=== PATIENT | male | born 1995 | race Caucasian/White ===

== ENCOUNTER → 2019-05-17 09:43 | Outpatient (BNVA) | payer MEDICAID, SELFPAY | PROVIDERS: Family Provider Nurse Practitioner; PCP Nurse Practitioner; Visit Provider Nurse Practitioner Psychiatric/Mental Health | DX: F33.1 Major depressive disorder, recurrent, moderate (principal); F43.12 Post-traumatic stress disorder, chronic; F41.1 Generalized anxiety disorder | CPT/HCPCS: 99213 ==

== ENCOUNTER 2019-06-09 18:12 | Inpatient (IN) | payer MEDICAID, SELFPAY ==
[2019-06-09 18:19] VITALS: BP 174/119; PULSE 86; RESP 16; TEMP 36.8; O2SAT 99; BMI 36.5
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
[2019-06-09 18:46] VITALS: O2SAT 97
[2019-06-09] MEDS: nicotine 21 mg Patch 1 PATCH TRANSDERMA (18:52)
[2019-06-09 19:14] LABS: Basophils % 0.3 %; Eosinophils # 0.1 10^3/uL (0.0-0.8); Eosinophils % 1.2 %; Hematocrit 42.8 % (42.0-52.0); Hemoglobin 14.1 g/dL (11.7-16.6); Lymphocytes # 2.3 10^3/uL (0.8-4.8); Mean Corpuscular HGB Conc 32.9 g/dL (30.0-36.0); Mean Corpuscular Hemoglobin 28.3 pg (28.0-34.0); Mean Corpuscular Volume 85.9 fL (80-94); Mean Platelet Volume 9.5 fL (7.4-10.4); Monocytes # 0.6 10^3/uL (0.2-0.9); Monocytes % 6.2 %; Neutrophils # 6.8 10^3/uL (1.8-7.7); Neutrophils % 68.9 %; Nucleated Red Blood Cells % 0 %; Platelet Count 297 10^3/cmm (130-400); Red Blood Count 4.98 10^6/uL (4.1-5.3); Red Cell Distribution Width 13.1 % (12.1-15.1); White Blood Count 9.9 10^3/uL (4.0-10.0)
[2019-06-09 19:41] LABS: Alanine Aminotransferase 9 U/L (0-41); Albumin Level 4.4 g/dL (3.5-5.2); Alkaline Phosphatase 134 IU/L (40-130); Aspartate Amino Transferase 18 U/L (0-40); Blood Urea Nitrogen 7 mg/dL (6-20); Calcium 10.1 mg/dL (8.5-10.5); Carbon Dioxide 24 mmol/L (22-29); Chloride 102 mmol/L (98-107); Globulin 3.2 g/dL (1.3-4.6); Glomerular Filtration Rate 83.7 mL/min (90-130); Glucose 123 mg/dL (65-115); Osmolality Calculated 283 mOsm/kg (285-295); Salicylate 0.5 mg/dL (3-10); Sodium 138 mmol/L (136-145); Thyroid Stimulating Hormone 1.91 uIU/mL (0.27-4.20); Total Bilirubin 0.5 mg/dL (0.15-1.2); Total Protein 7.6 g/dL (6.6-8.7)
[2019-06-09] MEDS: LORazepam 2 mg Tablet PO (19:44)
[2019-06-09 19:45] LABS: Acetaminophen < 5.0 ug/mL (10-30); Alcohol Level < 10 mg/dL (0-10)
[2019-06-09] MEDS: gabapentin 300 mg Capsule PO (21:34)
[2019-06-09] MEDS: CELEcoxib 100 mg Capsule PO (21:35)
[2019-06-09 22:13] VITALS: BP 142/93; PULSE 82; RESP 18; TEMP 36.9; O2SAT 98
[2019-06-09] MEDS: hyDROXYzine 25 mg Capsule 50 MG PO (22:49)
--- NOTE | 2019-06-09 22:50 | PC.NURSE ---
visteril given per pt request.
[2019-06-10 00:21] LABS: Amphetamines Screen Urine Negative (Negative); Barbiturates Screen Urine Negative (Negative); Benzodiazepines Screen Urine Positive (Negative); Cocaine Screen Urine Negative (Negative); Opiate Screen Urine Positive (Negative); PCP Screen Urine Negative (Negative); THC Screen Urine Positive (Negative)
[2019-06-10] MEDS: OLANZapine ODT 5 MG TABLET PO ×2 (00:26→21:08)
--- NOTE | 2019-06-10 00:27 | PC.NURSE ---
Pt given zyprexa at this time per request for a sleep aide.
[2019-06-10 06:00] VITALS: BP 134/79; PULSE 83; RESP 16; TEMP 36.5; O2SAT 96
[2019-06-10] MEDS: nicotine 21 mg Patch 1 PATCH TRANSDERMA (13:08)
[2019-06-10] MEDS: hyDROXYzine 25 mg Capsule 50 MG PO ×2 (13:08→20:20)
--- NOTE | 2019-06-10 13:08 | PC.NURSE ---
PRN VISTARIL VISTARIL 50MG PO PER PT C/O ANXIETY. WILL CONTINUE TO MONITOR FOR MEDICATION EFFECTIVENESS.
[2019-06-10 14:00] VITALS: BP 132/80; PULSE 115; RESP 20; TEMP 36.2; O2SAT 96
--- NOTE | 2019-06-10 14:00 | PC.NURSE ---
PRN VISTARIL FOLLOW UP MEDICATION EFFECTIVE. NO FURTHER C/O ANXIETY.
--- NOTE | 2019-06-10 17:16 | PM.NHP ---
Providers/Chief Complaint Admitting Physician: Erasto Aiken MD Primary Care Provider: CATIA Salcedo Chief Complaint: mhe HPI NPU History of Present Illness Luis Cortes is a 23-year-old male who came in POV with suicidal ideation. His fianc?e brought him. He was cooperative during ED stay. Fianc? gave history in front of the patient in the room to me since the patient had a flat affect stared down the whole time and did not want to answer many questions. He did not deny that what she said was false. She stated as does her affidavit that he had a shotgun with which he was going to kill himself but she was able to get that away from him just prior to coming in today. Review of Systems Narrative: General: Reports: 10 or more systems reviewed and unremarkable except in HPI and below Const: Denies: fever or chills Eyes: Denies: change in vision ENMT: Denies: throat pain Card: Denies: chest pain Resp: Denies: shortness of breath GI: Denies: abdominal pain, nausea, vomiting or change in bowel habits Musc: Denies: muscle weakness Skin/Breast: Denies: rash Neuro: Denies: headache Psych: Reports: depression and suicidal ideation Endo: Denies: excessive urination Long/Lymph: Denies: easy bruising or bleeding All/Imm: Denies: hives Meds NPU Home Medications Medication Instructions Recorded Confirmed Type celecoxib 100 mg capsule 100 mg PO BID 05/17/19 06/09/19 History gabapentin 300 mg capsule 300 mg PO BID 05/17/19 06/09/19 History hydrocodone 10 mg-acetaminophen 1 tab PO Q6H PRN 05/17/19 06/09/19 History 325 mg tablet levetiracetam 500 mg tablet 500 mg PO BID 05/17/19 06/09/19 History levothyroxine 25 mcg capsule 25 mcg PO DAILY 05/17/19 06/09/19 History magnesium oxide 400 mg (241.3 mg 400 mg PO BID tab 05/17/19 06/09/19 History magnesium) tablet montelukast 10 mg tablet 10 mg PO DAILY 05/17/19 06/09/19 History propranolol 20 mg tablet 20 mg PO BID 05/17/19 06/09/19 History zonisamide 100 mg capsule 600 mg PO .QHS cap 05/17/19 06/09/19 History famotidine 40 mg PO DAILY 06/09/19 06/09/19 History Allergies Allergy/AdvReac Type Severity Reaction Status Date / Time divalproex sodium Allergy Unknown unknown Verified 06/09/19 18:27 [From Depakote] latex Allergy Unknown rash Verified 06/09/19 18:27 Penicillins Allergy Unknown Unknown Verified 06/09/19 18:27 trazodone Allergy Unknown seizure Verified 06/09/19 18:27 PFSH NPU PFSH: Family History (Updated 06/10/19 @ 17:23 by Frankie David) Unknown Psychiatric illness Other Diabetes Heart disease Social History Smoking and tobacco status: current every day smoker smokeless tobacco Smokeless tobacco user: chewing tobacco Second hand smoke exposure: No Smoking risk assessment/counseling performed?: No Alcohol intake: never Desire information about alcohol rehabilitation?: No Counseling given: No 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 He was hospitalized on the surgical ch. Supplemental [facility] Information: Patient says bipolar disorder and schizoaffective disorder run all through his family. Home Safety: Firearms in home: No Personal Safety: Do you feel safe at home: Yes Victim of physical abuse: No Victim of emotional abuse: No Victim of sexual abuse: No Would you like help information on resources?: No Mental Status Exam MSE Comments: This is a 23-year-old male who presents in his stated age. He is clean and well-groomed. Mood is despondent. Affect is often very sad and sometimes tearful. Thought processes are integrated and free of any racing, blocking or looseness of association. There is no evidence of psychosis, such as hallucinations, delusions or ideas of reference. Speech is of normal rate and volume. There is no dysarthria, aprosody or pressure. Cognitive functions appear to be intact, including memory, orientation, capacity for reason, insight and judgment. The patient today denies suicidal or homicidal intent and is very sad about what he has done. Vitals/I&O/Wt Last Vital Signs Temp 97.2 F L 06/10/19 14:00 Pulse 115 H 06/10/19 14:00 Resp 20 H 06/10/19 14:00 BP 132/80 06/10/19 14:00 Pulse Ox 96 06/10/19 14:00 Weight last 48 hrs Weight 300 lb Physical Exam Narrative: EXAM NARRATIVE: Const: COMMON NORMALS: no apparent distress, oriented x3, alert and well nourished OTHER: flat affect HENMT: COMMON NORMALS: normocephalic, external ears normal and external nose normal HEAD & SCALP: normocephalic NOSE: external nose normal EXTERNAL EAR: Yes external ears normal MOUTH: no trismus THROAT: posterior oropharynx normal Eye: COMMON NORMALS: PERRL, EOMs intact bilaterally and conjunctivae normal CONJUNCTIVA: Yes conjunctivae normal PUPIL: Yes PERRL OTHER: poor eye contact Neck/C-Spine: COMMON NORMALS: full ROM, no lymphadenopathy, supple and no meningeal signs CERVICAL SPINE: Yes cervical ROM normal Lymph: No lymphadenopathy noted Chest: COMMONS NORMALS: inspection of chest normal Resp: COMMON NORMALS: normal respiratory effort, no retractions, no use of accessory muscles and clear to auscultation bilaterally EFFORT & INSPECTION: Yes able to speak in complete sentences AUSCULTATION: clear to auscultation bilaterally Cardio: COMMON NORMALS: regular rate and regular rhythm RATE: regular rate RHYTHM: regular rhythm GI: COMMON NORMALS: normal to inspection, nondistended, normoactive bowel sounds, soft to palpation, non-tender and no masses INSPECTION: Yes normal to inspection AUSCULTATION: Yes normoactive bowel sounds PALPATION: Yes soft, No guarding and No rigid : COMMON NORMALS: Yes no CVA tenderness BLADDER/KIDNEY EXAM: Yes no CVA tenderness Back/Pelvis: COMMON NORMALS: no CVA tenderness OTHER: Normal range of motion Extremity: COMMON NORMALS: normal to inspection GENERAL: Yes normal exam except as noted Neuro: COMMON NORMALS: oriented x3 and CN's II-XII intact bilaterally SENSORIUM/ORIENTATION: Yes alert MENINGEAL SIGNS: Yes no meningeal signs SPEECH: speech normal Psych: COMMON NORMALS: mental status grossly normal, thought process normal and speech normal ACTIVITY/MOTOR BEHAVIOR: No appropriate eye contact SPEECH: Yes normal speech MOOD & AFFECT: Yes blunted affect THOUGHT PROCESS: normal thought process THOUGHT CONTENT: Yes suicidality INSIGHT: poor JUDGEMENT: poor Skin: COMMON NORMALS: no rashes or lesions noted GENERAL SKIN EXAM: no rashes or lesions noted Data NPU : 06/09/19 19:03 06/09/19 19:03 A&P Assessment and plan (1) Suicidal ideations: Patient's suicidal ideation has waned. We will monitor him and provide supportive counseling, particularly CBT. He will be referred for follow-up to to the nurse practitioner who is his provider at [facility]. Status: Acute Code(s): R45.851 - Suicidal ideations (2) Chronic post-traumatic stress disorder: The patient needs CBT. This therapy can be obtained at [facility], to which we will make referral. Status: Chronic Code(s): F43.12 - Post-traumatic stress disorder, chronic (3) Major depressive disorder, recurrent episode, moderate with anxious distress: Pharmacotherapy and lithium. I have significant question as to whether he is in fact not early bipolar in light of the fact that most of his family have this disorder. Status: Chronic Code(s): F33.1 - Major depressive disorder, recurrent, moderate Involuntary Hold Information 96 Hour Hold: 96 Hour Involuntary Admission: No Other Hold: Other Involuntary Hold (indicate): No Comments: The patient's fianc? made out an affidavit which can be used if we need to file for involuntary hospitalization. Attestations NPU Medical Necessity Statement*: I anticipate 4 to 5 midnights at least 2 midnights' additional stay. Time Spent in Patient Care: Greater than 35 minutes (>than 50% of time spent in counselling and/or direct pt care on unit). Coding Level of Care Code Acute Cellophaner for Dori Fwkwaku Diagnoses Suicidal ideations R45.851 Chronic post-traumatic stress disorder F43.12 Major depressive disorder, recurrent episode, moderate with anxious distress F33.1
[2019-06-10] MEDS: acetaminophen 325 mg Tablet 650 MG PO (20:20)
[2019-06-10] MEDS: nicotine 2 mg Gum BUCCAL (21:08)
--- NOTE | 2019-06-10 21:10 | PC.NURSE ---
Pt given zyprexa and nicorette gum per request.
[2019-06-10 21:30] VITALS: BP 143/95; PULSE 113; RESP 19; TEMP 36.8; O2SAT 97
[2019-06-11 06:00] VITALS: BP 146/86; PULSE 69; RESP 20; TEMP 36.8; O2SAT 95
[2019-06-11] MEDS: nicotine 2 mg Gum BUCCAL (08:36)
[2019-06-11 14:00] VITALS: BP 126/85; PULSE 109; RESP 20; TEMP 36.6; O2SAT 98
[2019-06-11] MEDS: nicotine 21 mg Patch 1 PATCH TRANSDERMA (15:46)
--- NOTE | 2019-06-11 19:12 | P.PN_ITS ---
Subjective NPU Subjective: Interval history: The patient feels much better today. He has not had his medications and we reviewed those and entered them into the computer after consulting with the pharmacist, who had equivalents for every one of them. We reviewed his current status and he says he feels well enough to leave. His dad is coming up from [place] and will take him home. 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 He doesn't eat chicken anymore. He has not suffered any complications of not having his medicines until this evening and he is doing well. Medications: Reviewed: Yes Medication Review Details: Current Medications Acetaminophen (Tylenol) 650 mg PO Q4H PRN PRN Reason: MILD PAIN Last Admin: 06/10/19 20:20 Dose: 650 mg Documented by: Hydrocodone Bitart/Acetaminophen ([place] 10-325 Mg) 1 tab PO Q6H PRN PRN Reason: Pain Benztropine Mesylate (Cogentin) 1 mg PO BID PRN PRN Reason: Mild Extrapyramidal symptoms Buspirone HCl (Buspar) 15 mg PO TID JUAN Camphor/Menthol/Phenol (Blistex) 1 applic TOPICAL Q1H PRN PRN Reason: DRYNESS Celecoxib (Celebrex) 100 mg PO BID JUAN Cyproheptadine HCl (Periactin) 8 mg PO .QHS JUAN Diphenhydramine HCl (Benadryl) 50 mg IM ONCE PRN PRN Reason: Severe Extrapyramidal Symptoms Diphenhydramine HCl (Benadryl) 50 mg IM Q4H PRN PRN Reason: Severe Aggression Gabapentin (Neurontin) 300 mg PO BID JUAN Haloperidol (Haldol) 5 mg PO Q4H PRN PRN Reason: AGITATION Haloperidol Lactate (Haldol Inj) 5 mg IM Q4H PRN PRN Reason: Severe Aggression Hydroxyzine Pamoate (Vistaril) 50 mg PO Q6H PRN PRN Reason: ANXIETY Last Admin: 06/10/19 20:20 Dose: 50 mg Documented by: Levetiracetam (Keppra) 500 mg PO BID JUAN Loperamide HCl (Imodium Capsule) 2 mg PO Q6H PRN PRN Reason: DIARRHEA Lorazepam (Ativan) 2 mg IM Q4H PRN PRN Reason: Severe Aggression Magnesium Oxide (Magox) 400 mg PO BID [facility] Montelukast Sodium (Singulair) 10 mg PO DAILY [facility] Nicotine (Nicoderm 21 Mg Patch) 1 patch TRANSDERMA DAILY PRN PRN Reason: NICOTINE WITHDRAWAL Last Admin: 06/11/19 15:46 Dose: 1 patch Documented by: Nicotine Polacrilex (Nicorette) 2 mg BUCCAL Q2H PRN PRN Reason: NICOTINE WITHDRAWAL Last Admin: 06/11/19 08:36 Dose: 2 mg Documented by: Non-Formulary Medication (Famotidine) 40 mg PO DAILY [facility] Non-Formulary Medication (Fluoxetine [Prozac]) 40 mg PO QAM [facility] Non-Formulary Medication (Hydroxyzine Pamoate [Vistaril]) 50 mg PO TID PRN PRN Reason: anxiety Non-Formulary Medication (Levothyroxine) 25 mcg PO DAILY [facility] Non-Formulary Medication (Olanzapine [Zyprexa]) 1.25 mg PO .QHS [facility] Non-Formulary Medication (Propranolol) 10 mg PO BID [facility] Olanzapine (Zyprexa Zydis) 5 mg PO Q4H PRN PRN Reason: Agitation/Psychosis Last Admin: 06/10/19 21:08 Dose: 5 mg Documented by: Ondansetron HCl (Zofran) 4 mg PO Q6H PRN PRN Reason: NAUSEA AND VOMITING Zonisamide (Zonegran) 600 mg PO .QHS [facility] Mental Status Exam MSE Comments: This is a 23-year-old male who presents at his stated age. He is clean and well-groomed. Mood is greatly improved. He seems to be relieved. Affect is appropriate. Thought processes are integrated and free of any racing, blocking or looseness of association. There is no evidence of psychosis, such as hallucinations, delusions or ideas of reference. Speech is of normal rate and volume. There is no dysarthria, aprosody or pressure. Cognitive functions appear to be intact, including memory, orientation, capacity for reason, insight and judgment. The patient denies suicidal or homicidal intent. Vitals/I&O/Wt Last Vital Signs Temp 97.9 F 06/11/19 14:00 Pulse 109 H 06/11/19 14:00 Resp 20 H 06/11/19 14:00 BP 126/85 06/11/19 14:00 Pulse Ox 98 06/11/19 14:00 Data NPU : 06/09/19 19:03 06/09/19 19:03 A&P Additional A&P Information (1) Suicidal ideations: Patient's suicidal ideation has waned. We will monitor him and provide supportive counseling, particularly CBT. He will be referred for follow-up to to the nurse practitioner who is his provider at [facility] [place]. (2) Chronic post-traumatic stress disorder: The patient needs CBT. This therapy can be obtained at [facility], to which we will make referral. (3) Major depressive disorder, recurrent episode, moderate with anxious distress: Pharmacotherapy but I will withhold the lithium in light of the fact that the patient intends to leave for [place] he should follow-up there and possibly be titrated on lithium. I have significant question as to whether he is in fact not early bipolar in light of the fact that most of his family have this disorder. Involuntary Hold Information 96 Hour Hold: 96 Hour Involuntary Admission: No Other Hold: Other Involuntary Hold (indicate): No Attestations NPU Medical Necessity Statement*: The patient has improved rapidly. I anticipate 2 to 3 midnights additional stay Time Spent in Patient Care: Greater than 35 minutes (>than 50% of time spent in counselling and/or direct pt care on unit) . Coding Level of Care Code Acute Signals Intelligence Analyst for Dori Silver
[2019-06-11 20:05] VITALS: BP 154/101; PULSE 80; RESP 19; TEMP 36.8; O2SAT 100
[2019-06-11] MEDS: OLANZapine 5 mg TABLET 1.25 MG PO (20:37)
[2019-06-11] MEDS: zonisamide 100 MG Capsule 600 MG PO (20:37)
--- NOTE | 2019-06-11 20:40 | PC.NURSE ---
HS meds given at this time.
[2019-06-11] MEDS: HYDROcodone-acetaminophen 10-325 mg Tablet 1 TAB PO (21:02)
--- NOTE | 2019-06-11 21:03 | PC.NURSE ---
pt given norco for c/o back pain.
[2019-06-11] MEDS: acetaminophen 325 mg Tablet 650 MG PO (23:36)
[2019-06-12 06:00] VITALS: BP 135/86; PULSE 76; RESP 14; TEMP 36.4; O2SAT 99
[2019-06-12] MEDS: HYDROcodone-acetaminophen 10-325 mg Tablet 1 TAB PO ×3 (07:40→20:58)
[2019-06-12] MEDS: magnesium oxide 400 mg tablet PO ×2 (08:38→17:26)
[2019-06-12] MEDS: propranolol 20 mg Tablet 10 MG PO ×2 (08:39→17:26)
[2019-06-12] MEDS: fluoxetine 20 mg Capsule 40 MG PO (08:40)
[2019-06-12] MEDS: CELEcoxib 100 mg Capsule PO ×2 (08:40→17:27)
[2019-06-12] MEDS: famotidine 20 mg Tablet 40 MG PO (08:43)
[2019-06-12] MEDS: levothyroxine 25 mcg Tablet PO (08:44)
[2019-06-12] MEDS: levETIRAcetam 500 mg Tablet PO ×2 (08:44→17:27)
[2019-06-12] MEDS: gabapentin 300 mg Capsule PO ×2 (08:44→17:27)
[2019-06-12] MEDS: montelukast sodium 10 mg Tablet PO (08:44)
[2019-06-12] MEDS: acetaminophen 325 mg Tablet 650 MG PO (12:25)
[2019-06-12 14:00] VITALS: BP 127/85; PULSE 73; RESP 16
--- NOTE | 2019-06-12 15:03 | P.DS_ITS ---
Diagnoses at Discharge Discharge Diagnosis (1) Suicidal ideations: Status: Acute Problem details: The patient was acutely suicidal, and in the door. He finished his break-up with his girlfriend and now he feels a lot better. He now is of normal mental status, cheerful, bright and denying any suicidal or homicidal ideation, plan or intent. (2) Chronic post-traumatic stress disorder: Status: Chronic Problem details: The patient already has treatment resources and a pharmacologic regimen established. (3) Major depressive disorder, recurrent episode, moderate with anxious distress: Status: Chronic Problem details: Mood is significantly improved. Reason for Visit Reason for Visit: Reason For Visit: mhe Brief History: The patient became suicidal during an argument with his girlfriend. Hospital Course Hospital Course There was a SNAFU regarding the patient's medicine but that is now squared away. His mood is improved simply from being in the millieu away from the fra. He has accomplished a lot in the time he has been here. He is now free of any suicidal or homicidal ideation plan or intent. He has a plan for follow-up and intends to move to [place] where he has family support, job and a treatment center which can continue his care. Involuntary Hold Information 96 Hour Hold: 96 Hour Involuntary Admission: No Other Hold: Other Involuntary Hold (indicate): No Mental Status Exam MSE Comments: This is a 23-year-old male who presents at his stated age. He is clean, neat and well-groomed. Mood is bright and upbeat. Affect is appropriate. Thought processes are integrated and free of any racing, blocking or looseness of association. There is no evidence of psychosis, such as but not limited to hallucination, delusion or ideas of reference. Speech is of normal rate and volume, without dysarthria, aprosody or pressure. Cognitive functions, including orientation, reason, insight and judgment are greatly improved. The patient denies suicidal or homicidal ideation, plan or intent. Discharge Data Vitals: Last Vital Signs Temp 97.5 F L 06/12/19 06:00 Pulse 76 06/12/19 06:00 Resp 14 06/12/19 06:00 BP 135/86 06/12/19 06:00 Pulse Ox 99 06/12/19 06:00 Discharge Plan Discharge Patient Disposition: Home, Self-Care Condition: Stable Prescriptions: Continued fluoxetine [Prozac] 40 mg capsule 40 mg PO QAM Qty: 30 RF: 5 olanzapine [Zyprexa] 2.5 mg tablet 1.25 mg PO .QHS Qty: 30 RF: 5 hydroxyzine pamoate [Vistaril] 50 mg capsule 50 mg PO TID PRN (Reason: anxiety) Qty: 90 RF: 5 buspirone 15 mg tablet 15 mg PO TID Qty: 90 RF: 5 Keppra 500 mg tablet 500 mg PO BID Qty: 60 RF: 0 famotidine 40 mg Tablet 40 mg PO DAILY Qty: 30 RF: 0 hydrocodone-acetaminophen 10-325 mg tablet 1 tab PO Q6H PRN (Reason: Pain) Qty: 30 RF: 0 zonisamide 100 mg capsule 600 mg PO .QHS Qty: 30 RF: 0 cyproheptadine 4 mg tablet 8 mg PO .QHS Qty: 30 RF: 5 propranolol 10 mg Tablet 10 mg PO BID Qty: 60 RF: 0 magnesium oxide 400 mg (241.3 mg magnesium) tablet 400 mg PO BID Qty: 60 RF: 0 gabapentin 300 mg capsule 300 mg PO BID Qty: 60 RF: 0 Singulair 10 mg tablet 10 mg PO DAILY Qty: 30 RF: 0 Celebrex 100 mg capsule 100 mg PO BID Qty: 60 RF: 1 levothyroxine 25 mcg capsule 25 mcg PO DAILY Qty: 30 RF: 0 Discharge Orders: Discharge Order (Routine); Ordered 06/12/19 Ordered By: Frankie David Referrals: Morgan Wyman FNP-C [Primary Care Provider] - Didi Quiles PMHNP [Staff Physician] - 07/15/19 3:45 pm Discharge Diet: Usual diet Discharge Activity: Resume usual activity Discharge Attestations NPU Time Spent in Discharge Care*: greater than 30 min Specific Discharge Activities: Specific discharge activities: educating patient, discussing with pcp/other providers, documenting/other paperwork and evaluating patient/reviewing data Coding Level of Care Code Acute Manager Mac for [facility] Fwd Diagnoses Suicidal ideations R45.851 Chronic post-traumatic stress disorder F43.12 Major depressive disorder, recurrent episode, moderate with anxious distress F33.1
[2019-06-12 15:05] VITALS: BP 135/86; PULSE 76; RESP 14; TEMP 36.4; O2SAT 99
[2019-06-12] MEDS: OLANZapine 5 mg TABLET 1.25 MG PO (20:58)
[2019-06-12] MEDS: nicotine 2 mg Gum BUCCAL ×2 (20:58→23:54)
[2019-06-12] MEDS: zonisamide 100 MG Capsule 600 MG PO (21:18)
[2019-06-12 22:00] VITALS: BP 145/100; PULSE 84; RESP 19; TEMP 36.6; O2SAT 99
[2019-06-13 06:00] VITALS: BP 105/65; PULSE 58; RESP 20; TEMP 36.4; O2SAT 99
[2019-06-13] MEDS: levothyroxine 25 mcg Tablet PO (08:02)
[2019-06-13] MEDS: fluoxetine 20 mg Capsule 40 MG PO (08:02)
[2019-06-13] MEDS: montelukast sodium 10 mg Tablet PO (08:03)
[2019-06-13] MEDS: famotidine 20 mg Tablet 40 MG PO (08:03)
[2019-06-13] MEDS: gabapentin 300 mg Capsule PO ×2 (08:03→17:24)
[2019-06-13] MEDS: magnesium oxide 400 mg tablet PO ×2 (08:03→17:24)
[2019-06-13] MEDS: propranolol 20 mg Tablet 10 MG PO ×2 (08:04→17:25)
[2019-06-13] MEDS: levETIRAcetam 500 mg Tablet PO ×2 (08:04→17:24)
[2019-06-13] MEDS: HYDROcodone-acetaminophen 10-325 mg Tablet 1 TAB PO ×3 (08:07→20:23)
[2019-06-13] MEDS: CELEcoxib 100 mg Capsule PO ×2 (08:37→17:25)
--- NOTE | 2019-06-13 10:36 | P.MISC_ITS ---
Miscellaneous Note Purpose of Documentation: Aborted discharge. Note: This patient's discharge was prepared yesterday pursuant to his expectation that he would be able to go home. However, as he walked out the door, a [facility] [place] showed up and served him with a restraining order and he had no place to go. He returned and called his friend, who was at work. His friend said he did send someone to pick him up and that the patient could stay at his house until his father got here to take him down to [place]. Discharge orders were rescinded pending completion of establishment of a place to stay. The friend's friend was supposed to show after 10:00 but never showed and so we cannot discharge this patient to the streets. I proposed that a halfway bed be found pending his father's arrival. Hopefully we can get a load planner today to accomplish this. The patient remains stable and his mental status is unchanged.
--- NOTE | 2019-06-13 13:39 | PM.MISC ---
Miscellaneous Note Purpose of Documentation: Epidemiologic update relating to placement of the patient. Note: Because of epidemiologic issues the hospital is going to single-point entry with closure of the Cafeteria. Efforts to retard the infectious agent are under way. I discussed this with the on-call mission planner. We concluded that the safety of the patient is far greater here in the hospital than out in a detention while the patient awaits his father's arrival. I am reversing my plan to seek a detention bed out of an abundance of caution for the patient's wellbeing and safety. I have discussed this at length with the patient. He had considered going to [place] and catching a bus to [place], which I suggested would be highly risky compared to having his dad come up and drive him home. He understood and said he would let me know when he had transport of any kind. We will reactivate his discharge at that time.
[2019-06-13 14:00] VITALS: BP 125/87; PULSE 92; RESP 18
[2019-06-13] MEDS: nicotine 21 mg Patch 1 PATCH TRANSDERMA (16:32)
[2019-06-13] MEDS: acetaminophen 325 mg Tablet 650 MG PO (17:39)
[2019-06-13] MEDS: nicotine 2 mg Gum BUCCAL (20:24)
[2019-06-13] MEDS: OLANZapine 5 mg TABLET 1.25 MG PO (21:23)
[2019-06-13] MEDS: hyDROXYzine 25 mg Capsule 50 MG PO (21:23)
[2019-06-13] MEDS: zonisamide 100 MG Capsule 600 MG PO (21:24)
[2019-06-13 22:00] VITALS: BP 133/86; PULSE 70; RESP 16; TEMP 36.9; O2SAT 98
--- NOTE | 2019-06-14 05:26 | PC.NURSE ---
[id number] PATIENT TO BE DISCHARGED, WAS REQUESTING [facility] BE CALLED TO FIND OUT WHAT TIME THEY WILL GET HER. WHEN CALLED SAYS PATIENT DID NOT HAVE A SCHEDULED RIDE. CALLED LOGISTICS TO GET MORE INFO, ONCE AGAIN WAS TOLD NO RIDE SCHEDULED. AFTER HOLING FOR SEVERAL MINUTES, HAS RIDE SET UP FOR 7 AM. WILL TAKE TO BUS STATION IN [place], [place]. WILL THEN TRAVEL ON TO [place] TO BE WITH FAMILY.
== END 2019-06-14 05:40 | disposition home or self-care (01) | DRG 885 ==
LOC: ER 20:54 → NP 21:12
PROVIDERS: Admitting Provider Psychiatry & Neurology Psychiatry; Emergency Provider Emergency Medicine; Family Provider Nurse Practitioner; PCP Nurse Practitioner; Visit Provider Psychiatry & Neurology Psychiatry
DX: F33.1 Major depressive disorder, recurrent, moderate (principal); R45.851 Suicidal ideations; F43.12 Post-traumatic stress disorder, chronic; F17.210 Nicotine dependence, cigarettes, uncomplicated; Z79.51 Long term (current) use of inhaled steroids; Z79.890 Hormone replacement therapy; Z79.899 Other long term (current) drug therapy
CPT/HCPCS: 12345; 36415; 80053; 80307; 84443; 85025; 99284

== ENCOUNTER 2019-06-09 18:12 | Emergency (ER) | payer MEDICAID, SELFPAY | END 2019-06-09 22:12 | disposition admitted as inpatient to this hospital (09) | LOC: ER 06-25 10:08 | PROVIDERS: Emergency Provider Emergency Medicine; Family Provider Nurse Practitioner; PCP Nurse Practitioner | DX: Z01.89 Encounter for other specified special examinations (principal) | CPT/HCPCS: 12345; 36415; 80053; 80307; 84443; 85025; 99284; 99285 ==